=== PATIENT | female | born 1960 | race Native Hawaiian/Other Pacific Islander ===

== ENCOUNTER 2016-12-30 12:16 | Outpatient (CLI) | payer OTHER ==
[~2016-12-30 12:16] MED LIST: ASPIR-8181 MG OR; GABA300C2 PO; METFTAB PO; PEPCID40 MG PO; PLAVIX75 MG PO; PRAVACHOL20 MG PO; ZESTRIL40 MG PO
== END 2016-12-30 19:16 | disposition home or self-care (01) ==
LOC: LABW 12:16
DX: E87.5 Hyperkalemia (principal)
CPT/HCPCS: 36415; 84132

== ENCOUNTER 2017-07-30 11:32 | Outpatient (CLI) | payer OTHER ==
[2017-07-30 11:49] LABS: PLATELET COUNT 364 K/uL (152-353)
[2017-07-30 12:07] LABS: POTASSIUM 5.8 mmol/L (3.6-5.2)
== END 2017-07-30 21:35 | disposition home or self-care (01) ==
LOC: LABW 11:32
PROVIDERS: Podiatrist
DX: E11.621 Type 2 diabetes mellitus with foot ulcer (principal)
CPT/HCPCS: 36415; 80053; 85027; 85651

== ENCOUNTER 2017-09-02 12:52 | Day surgery (SDC) | payer OTHER | END 2017-09-03 | LOC: CANPRESDC → OR 12:52 | DX: M86.172 Other acute osteomyelitis, left ankle and foot (principal) ==

== ENCOUNTER 2017-09-26 14:20 | Emergency (ER) | payer OTHER ==
[~2017-09-26] VITALS: Ht 177.8 cm; Wt 127.0 kg
[2017-09-26 14:20] VITALS: TEMP 98.2
[2017-09-26 16:57] VITALS: BP 124/70
== END 2017-09-26 16:57 | disposition home or self-care (01) ==
LOC: ED 14:20
DX: M25.562 Pain in left knee (principal); W18.39XA Other fall on same level, initial encounter; Y92.89 Other specified places as the place of occurrence of the external cause
CPT/HCPCS: 99283; L1830

== ENCOUNTER 2017-10-20 09:14 | Outpatient (CLI) | payer OTHER ==
[2017-10-20 16:46] LABS: POTASSIUM 5.5 mmol/L (3.6-5.2)
[2017-10-20 16:47] LABS: PLATELET COUNT 301 K/uL (152-353)
[2017-10-20 17:23] LABS: PARTIAL THROMBOPLASTIN TIME 24.8 SECONDS (24.5-33.6)
== END 2017-10-20 19:55 | disposition home or self-care (01) ==
LOC: LABW 09:14
PROVIDERS: Podiatrist
DX: Z01.810 Encounter for preprocedural cardiovascular examination (principal); Z01.811 Encounter for preprocedural respiratory examination; Z01.812 Encounter for preprocedural laboratory examination; E11.41 Type 2 diabetes mellitus with diabetic mononeuropathy; Z51.81 Encounter for therapeutic drug level monitoring
CPT/HCPCS: 36415; 80053; 83036; 85002; 85027; 85610; 85730; 93005

== ENCOUNTER 2017-12-02 18:21 | Outpatient (CLI) | payer OTHER | END 2017-12-02 18:48 | disposition short-term general hospital (02) | LOC: AMB 18:21 | DX: R10.84 Generalized abdominal pain (principal); M25.562 Pain in left knee | CPT/HCPCS: A0425; A0427 ==

== ENCOUNTER 2017-12-08 16:41 | Outpatient (CLI) | payer OTHER | END 2017-12-08 17:07 | disposition short-term general hospital (02) | LOC: AMB 16:41 | DX: R06.02 Shortness of breath (principal) | CPT/HCPCS: A0425; A0427 ==

== ENCOUNTER 2019-06-29 08:56 | Outpatient (CLI) | payer OTHER ==
[2019-06-29 11:51] LABS: PLATELET COUNT 191 K/uL (152-353)
[2019-06-29 11:59] LABS: POTASSIUM 4.8 mmol/L (3.6-5.2)
[2019-06-29 12:17] LABS: PARTIAL THROMBOPLASTIN TIME 26.2 SECONDS (24.5-33.6)
== END 2019-06-29 19:45 | disposition home or self-care (01) ==
LOC: LABW 08:56
PROVIDERS: Podiatrist
DX: Z01.810 Encounter for preprocedural cardiovascular examination (principal); Z01.811 Encounter for preprocedural respiratory examination; Z01.812 Encounter for preprocedural laboratory examination; E11.9 Type 2 diabetes mellitus without complications; Z51.81 Encounter for therapeutic drug level monitoring
CPT/HCPCS: 36415; 80053; 83036; 85002; 85027; 85610; 85730; 93005

== ENCOUNTER 2020-07-10 10:33 | Emergency (ER) | payer OTHER ==
[~2020-07-10] VITALS: Ht 175.3 cm; Wt 127.0 kg
[2020-07-10] MEDS ORDERED: NOVOLOG100 UNIT/M SC (11:00)
[2020-07-10] MEDS ORDERED: TRESIBA100 UNIT/M SC (11:02)
[2020-07-10] MEDS ORDERED: VICTOZA18 MG/3 ML SC (11:02)
[2020-07-10 11:25] LABS: PLATELET COUNT 213 K/uL (152-353)
[2020-07-10 12:46] LABS: POTASSIUM 4.9 mmol/L (3.6-5.2)
[2020-07-10 14:03] VITALS: BP 182/91; TEMP 98.4
== END 2020-07-10 14:15 | disposition home or self-care (01) ==
LOC: ED 10:39
PROVIDERS: Emergency Medicine Emergency Medical Services
DX: U07.1 COVID-19 (principal)
CPT/HCPCS: 80053; 81000; 85027; 87635; 96374; 99284; J1100; U0003

== ENCOUNTER 2021-06-11 16:13 | Outpatient (CLI) | payer OTHER ==
[~2021-06-11 16:13] MED LIST changes: +NOVOLOG100 UNIT/M SC; +TRESIBA100 UNIT/M SC; +VICTOZA18 MG/3 ML SC
== END 2021-06-11 19:33 | disposition home or self-care (01) ==
LOC: RAD 16:13
PROVIDERS: ATTEND Internal Medicine
DX: R07.81 Pleurodynia (principal); M79.652 Pain in left thigh; V89.2XXA Person injured in unspecified motor-vehicle accident, traffic, initial encounter

== ENCOUNTER 2021-06-12 13:18 | Outpatient (CLI) | payer OTHER | END 2021-06-12 19:13 | disposition home or self-care (01) | LOC: CT 13:18 | PROVIDERS: ATTEND Internal Medicine | DX: R07.89 Other chest pain (principal); V89.2XXA Person injured in unspecified motor-vehicle accident, traffic, initial encounter ==